=== PATIENT | female | born 1935 | race Caucasian/White ===

== ENCOUNTER 2018-08-16 07:03 | Inpatient (IN) | payer BC, OTHER ==
[2018-08-08 12:29] VITALS: BMI 33.7
[2018-08-16] MEDS ORDERED: VANCOMYCIN 1,000 MG VIAL (RESTRICTED TO ID ONLY) ONE (07:12)
[2018-08-16] MEDS ORDERED: ceFAZolin SODIUM 1 GM VIAL ONE ×2 (07:12→08:31)
[2018-08-16] MEDS ORDERED: GABAPENTIN 300 MG CAPSULE (FP) PO ONE (07:51)
[2018-08-16] MEDS ORDERED: TRANEXAMIC ACID 1000 MG/10 ML VIAL IVPUSH ONE (07:51)
[2018-08-16] MEDS ORDERED: CELECOXIB 200 MG CAPSULE PO ONE (07:51)
[2018-08-16] MEDS ORDERED: CEFAZOLIN 2 GM in DEXTROSE 5%-WATER - 50 ML IVPB ONE (07:51)
--- NOTE | 2018-08-16 07:57 | HP ---
Satellite [facility] - Chief Complaint Chief Complaint: right knee pain s/p ukr - Past Medical History Allergies/Adverse Reactions: Allergies Allergy/AdvReac Type Severity Reaction Status Date / Time No Known Allergies Allergy Verified 04/21/14 15:33 Cardiovascular: Yes: HTN, Hyperlipdemia. No: Aortic Insufficiency Gastrointestinal: Yes: Constipation. No: Ascites, GERD, GI Bleed Infectious Disease: Yes: Herpes Zoster Musculoskeletal: Yes: Bursitis (KNEE) - Current Medications Current Medications: Home Medications Medication Instructions Recorded Simvastatin [Zocor -] 20 mg PO HS 04/21/14 Alprazolam 0.25 mg PO BID PRN 07/19/14 Aspirin [Aspirin EC] 81 mg PO HS 07/19/14 Calcium Carbonate/Vitamin D3 1 each PO DAILY 07/19/14 [Calcium + Vitamin D Tablet] Cholecalciferol (Vitamin D3) 2,000 unit PO DAILY 07/19/14 [Vitamin D3] Docusate Sodium [Colace -] 100 mg PO TID 07/19/14 Ferrous Sulfate [Feosol] 325 mg PO DAILY 07/19/14 Temazepam [Restoril] 15 mg PO HS 07/19/14 Vitamin B Complex [B Complex] 1 each PO DAILY 07/19/14 Metoprolol Succinate [Toprol XL -] 12.5 mg PO DAILY 07/26/14 Satellite Physical Exam - Physical Examination General Appearance: Well Nourished, Well Developed, Alert & Oriented x3 ENT: Clear Lung: Normal air movement Heart: Regular rate & rhythm Extremities: Other (right knee- well healed surgical scar, + swelling, + ttp, decr rom, nvi xrays show medial ukr with grade 4 djd lateral and PF) Neurological: Intact, Alert, Oriented Satellite Impression/Plan - Impression/Plan Impression: right knee djd, s/p medial ukr Operative Procedure: right revision pelon tkr Date to be Performed: 08/16/18
[2018-08-16] MEDS ORDERED: MIDAZOLAM HCL 2 MG/2 ML SINGLE DOSE VIAL ONE (08:55)
[2018-08-16] MEDS ORDERED: BUPIVACAINE LIPOSOME/PF (EXPAREL) 266 MG/20 ML VIAL ONE (08:55)
[2018-08-16] MEDS ORDERED: ONDANSETRON 4 MG/2 ML VIAL IVPUSH PRN ×2 (10:08→11:22)
[2018-08-16] MEDS ORDERED: LACTATED RINGERS SOLUTION 1,000 ML IV SCH ×2 (10:15→11:30)
[2018-08-16] MEDS ORDERED: VANCOMYCIN 1,000 MG VIAL (RESTRICTED TO ID ONLY) IVPB ONE (10:55)
[2018-08-16] MEDS ORDERED: ALPRAZolam 0.25 MG TABLET PO PRN (11:21)
[2018-08-16] MEDS ORDERED: MAGNESIUM HYDROX 2400MG/30ML ORAL SUSPENSION 30 ML CUP PO PRN (11:22)
[2018-08-16] MEDS ORDERED: MAG HYDROX/AL HYDROX/SIMETH 30 ML UNIT-DOSE CUP PO PRN (11:22)
--- NOTE | 2018-08-16 11:24 | OP ---
Operative Note - Note: Operative Date: 08/16/18 ([facility]) Pre-Operative Diagnosis: right knee djd, s/p ukr Operation: right revision pelon tkr Post-Operative Diagnosis: Same as Pre-op Surgeon: Jesús Grimaldo Merchandise Stocker: Terrence Veras Anesthesiologist/FINISHING FRAME RUNNER: Carline Blanton Anesthesia: Spinal, Local Specimens Removed: bone fragments, ukr components Estimated Blood Loss (mls): 150 Operative Report Dictated: Yes
[2018-08-16] MEDS ORDERED: ACETAMINOPHEN 325 MG TABLET (FP) ONE (12:07)
[2018-08-16] MEDS: DOCUSATE SODIUM 100 MG CAPSULE (FP) PO SCH ×2 (14:10→21:14)
[2018-08-16] MEDS ORDERED: oxyCODONE HCL 5 MG TABLET ONE (14:30)
[2018-08-16] MEDS: oxyCODONE HCL 5 MG TABLET PO PRN ×3 (14:40→21:16)
[2018-08-16] MEDS: CEFAZOLIN 2 GM/D5W 2 GM/50 ML ML IVPB SCH (17:08)
[2018-08-16] MEDS: ACETAMINOPHEN 325 MG TABLET (FP) PO SCH ×2 (17:09→23:30)
--- NOTE | 2018-08-16 20:39 | OP ---
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 POSTOPERATIVE DIAGNOSIS: Degenerative joint disease, right knee status post previous medial partial knee replacement. PROCEDURE: Revision of previous unicompartmental knee replacement to a right total knee arthroscopy with robotic-assisted navigation. SURGEON: Jesús Grimaldo MD CANNONEER: JOSEPH Whitt ANESTHESIA: Regional and spinal. CLOSURES: Cemented Triathlon knee system with a 3 femur, 3 tibia, 13 polyethylene, 32 patella, No. 1 Vicryl to fascia, 0 and 2-0 to subcutaneous, 3-0 Monocryl to subcuticular with skin glue to skin, 4-0 undyed Vicryl for pin sites. ESTIMATED BLOOD LOSS: Less than 100 mL. TOURNIQUET TIME: Approximately 25 minutes. COMPLICATIONS: None. CONDITION: To recovery room in stable condition. DESCRIPTION OF PROCEDURE: The patient was taken to the operating room on August 16, 2018. Spinal and regional anesthesia was administered by the anesthesiologist. IV Kefzol was administered prophylactically prior to the case. Well-padded pneumatic tourniquet was placed on the right proximal thigh. The right lower extremity was prepped and draped in the usual sterile fashion. Utilizing the previously made incision, which was more medial, we made an incision using that incision propagating it more proximally and curving it towards the midline for approximately 12 cm. flaps were made medial and lateral to perform the procedure. Medial parapatellar arthrotomy was then made, and the patella was inverted, and the knee was flexed up. Check points were malleted in both the femur and the tibia. Meniscal remnant were removed as were the ACL and PCL. Subperiosteal dissection was done on the anteromedial proximal tibia. Two threaded parallel pins were drilled from the medial femoral condyle towards the posterior lateral femoral condyle. To these pins was fashioned the femoral navigation array. On the tibial side, the same was performed. Two small hand incisions one handbreadth below the tibial tubercle going through the anterior cortex engaging, but not going through, the far cortex. Again, the tibial navigation array was clamped to these pins. The knee was then registered with multiple points on the femur and the tibia with the navigation device. Excellent registration was then confirmed by "popping the bubbles". The knee was then stressed in both varus and valgus stress at full extension and 90 degrees of flexion. We used this data to optimize the virtual position of the components on the navigation device. After this was performed, small osteotomes were used to remove the femoral and tibial component. This was done with minimal, if any, bone loss. The robot was then brought into the field, and the femur and tibia were both cut as to plan. Excellent balancing was obtained in both full extension and full flexion with a 9-mm insert; however, looking at the tibial baseplate, there was significant cement still on the medial compartment. We then had the robot take off 4 more mm of proximal tibia, and we brought the saw back into the field and cut the tibia as to plan. We then ensured that there was identical soft tissue balancing in flexion and extension again using our 13-mm implant, which there clearly was. This got rid of all of the cement on the tibial baseplate. The trial components were placed on the femur. The tibial baseplate was allowed to "find itself". It was then clipped into place. The center of the component was confirmed additionally by using the navigation device to make sure essential external rotation of the tibial component was obtained. Again, the knee was taken through a full extension and full flexion with excellent tensioning throughout. The patella was calipered for thickness and was osteotomized down to the appropriate level. A 32 lollipop was used to drill lug holes in the patella, and a trial component was applied. The knee was taken through a range of motion and found to have excellent tracking of the patella throughout with no undue tension. The trial components were removed. A keyhole was then punched and drilled. The real components were then cemented in using modern generation cement techniques with antibiotic cement. This was done after the leg was exsanguinated with an Esmarch bandage and the tourniquet was inflated to 275 mmHg. The knee was thoroughly irrigated and dried and the modern cementation took place. The knee was pressurized in extension. All excess cement was removed. After the cement was hardened, the knee was thoroughly inspected to remove all excess cement. The real 13 polyethylene was then clipped into place. Range of motion, stability, and tracking was as described earlier. The knee was again thoroughly irrigated. It was dried of all excess fluid. Vancomycin powder was then placed into the joint. The medial parapatellar arthrotomy was then closed using No. 1 Vicryl interrupted suture. After this layer was closed, again, the knee was taken through a range of motion and found to have no undue tension on the retinacular repair and excellent tracking of the patella. The subcutaneous was then post antibiotic irrigated again and then closed in layers with 2-0 subcutaneous and 3-0 Monocryl subcuticular with skin glue for closure of the pins on the tibia, and the femur and the check points were all removed. A sterile Aquacel dressing was then applied followed by a Rodrigues dressing. The patient was awakened from anesthesia and transferred to the recovery room in stable condition with no complications. Estimated blood loss was less than 100 mL. JESÚS GRIMALDO M.D. [id number]
[2018-08-16] MEDS: oxyCODONE HCL 10 MG SUSTAINED ACTING TABLET PO SCH (21:14)
[2018-08-16] MEDS: ATORVASTATIN CA 10 MG TABLET (FP) PO SCH (21:14)
[2018-08-16] MEDS ORDERED: TEMAZEPAM 15 MG CAPSULE PO PRN (22:00)
[2018-08-16] MEDS ORDERED: PATIENT'S OWN MEDICATION (NON-FORMULARY) (Simvastatin 20 MG) PO SCH (22:00)
[2018-08-17] MEDS: CEFAZOLIN 2 GM/D5W 2 GM/50 ML ML IVPB SCH (02:59)
[2018-08-17] MEDS: oxyCODONE HCL 5 MG TABLET PO PRN ×3 (05:25→19:47)
[2018-08-17] MEDS: DOCUSATE SODIUM 100 MG CAPSULE (FP) PO SCH ×3 (05:26→21:42)
[2018-08-17] MEDS: ACETAMINOPHEN 325 MG TABLET (FP) PO SCH ×3 (05:26→17:04)
[2018-08-17] MEDS: ASPIRIN 325 MG TABLET PO SCH (08:04)
[2018-08-17 09:17] LABS: HEMATOCRIT 32.9 % (32.4-45.2); HEMOGLOBIN 11.1 GM/dl (10.7-15.3); MCH 28.5 pg (25.7-33.7); MCHC 33.8 g/dl (32.0-36.0); MEAN CELL VOLUME 84.4 fl (80-96); MEAN PLT VOLUME 8.1 fl (7.5-11.1); PLATELET COUNT 204 K/MM3 (134-434); RDW 12.4 % (11.6-15.6); WHITE BLOOD COUNT 8.3 K/mm3 (4.0-10.8)
[2018-08-17] MEDS: FERROUS SO4 325 MG TABLET (FP) PO SCH (09:29)
[2018-08-17] MEDS: metoPROLOL SUCCINATE 25 MG TAB.SR.24H (FP) PO SCH (09:29)
[2018-08-17] MEDS: oxyCODONE HCL 10 MG SUSTAINED ACTING TABLET PO SCH ×2 (09:29→21:23)
[2018-08-17] MEDS: PANTOPRAZOLE 40 MG TABLET (FP) PO SCH (09:29)
[2018-08-17] MEDS: MULTIVITAMINS (DAILY MVI) TABLET (FP) PO SCH (09:29)
[2018-08-17] MEDS ORDERED: PATIENT'S OWN MEDICATION (NON-FORMULARY) (Ferrous Sulfate [Feosol] 325 MG) PO SCH (10:00)
--- NOTE | 2018-08-17 10:21 | PN ---
Progress Note (short form) - Note Progress Note: Ortho Pt seen and examined s/p right revision TKR pod #1 Selected Entries 08/17/18 06:00 Temperature 99.0 F Pulse Rate 76 Respiratory 18 Rate Blood Pressure 138/56 L Laboratory Tests 08/17/18 08:15 WBC 8.3 Hgb 11.1 Hct 32.9 Plt Count 204 dressing c/d/i, calf soft, nt nvi a/p PT dvt ppx pain control d/c home tomorrow if stable
--- NOTE | 2018-08-17 11:48 | PN ---
Progress Note (short form) - Note Progress Note: ANESTHESIA POSTOP: 83 yo female POD #1 s/p Revision of R TKA Patient sitting in chair in PT. Alert. Talkative. Pain responsive to pain medications. No nausea. VSS, Afebrile Encouraged IS and participation in PT. No complications from anesthesia
[2018-08-17] MEDS: ATORVASTATIN CA 10 MG TABLET (FP) PO SCH (21:23)
[2018-08-18] MEDS: ACETAMINOPHEN 325 MG TABLET (FP) PO SCH ×2 (00:02→07:00)
[2018-08-18] MEDS: DOCUSATE SODIUM 100 MG CAPSULE (FP) PO SCH (07:03)
[2018-08-18] MEDS: ASPIRIN 325 MG TABLET PO SCH (07:49)
[2018-08-18 08:52] LABS: HEMATOCRIT 29.4 % (32.4-45.2); HEMOGLOBIN 10.4 GM/dl (10.7-15.3); MCH 29.6 pg (25.7-33.7); MCHC 35.5 g/dl (32.0-36.0); MEAN CELL VOLUME 83.4 fl (80-96); MEAN PLT VOLUME 8.6 fl (7.5-11.1); PLATELET COUNT 206 K/MM3 (134-434); RBC 3.52 M/mm3 (3.60-5.2); RDW 12.1 % (11.6-15.6); WHITE BLOOD COUNT 10.2 K/mm3 (4.0-10.8)
--- NOTE | 2018-08-18 08:52 | PN ---
Progress Note (short form) - Note Progress Note: Ortho Pt seen and examined s/p right revision TKR pod #2 Selected Entries 08/18/18 06:00 Temperature 100.3 F H Pulse Rate 93 H Respiratory 20 Rate Blood Pressure 130/49 L Laboratory Tests 08/18/18 07:55 WBC Pending Hgb Pending Hct Pending Plt Count Pending dressing c/d/i, calf soft, nt nvi a/p PT dvt ppx pain control d/c home today f/u in 1 week
--- NOTE | 2018-08-18 08:53 | DS ---
Physical Examination Vital Signs: Vital Signs Temperature 100.3 F H 08/18/18 06:00 Pulse Rate 93 H 08/18/18 06:00 Respiratory Rate 20 08/18/18 06:00 Blood Pressure 130/49 L 08/18/18 06:00 O2 Sat by Pulse Oximetry (%) 97 08/18/18 07:53 Discharge Summary Reason For Visit: OSTEOARTHRITIS Procedures: Principal: right revision tkr Hospital Course: admitted for elective right revision pelon TKR, uneventful post-op, stable for d/ c Condition: Good - Instructions Diet, Activity, Other Instructions: Post-op Instructions-Total Knee Replacement Call the office for a follow-up appointment in 1 week - [phone] Aspirin 325mg daily for 6 weeks. Pain medication was sent into your pharmacy. Apply Graduated Compression Stockings (TEDs) to both lower extremities- remove daily for hygiene ONLY Apply Sequential Compression Device (SCDs) to both Lower extremities remove for PT and hygiene ONLY Apply cold packs to affected area for 15 minutes every 2 hours. Physical Therapist will come to your home for the first 5 days. You will be set up with outpatient PT at your first post-operative visit. Patient may ambulate as tolerated-encourage self care (at least every 2-3 hours while awake) with walker or cane Maintain Aquacel (waterproof) dressing to operative wound (will be removed by surgeon at first office visit) Shower with Aquacel dressing in place-if Aquacel integrity compromised, remove and apply dry sterile dressing and notify Orthopedist. DO NOT SHOWER unless Orthopedists approves without Aquacel dressing CONTACT THE OFFICE FOR ANY CHANGE IN YOUR CONDITION (for example-fever greater than 102 degrees, excessive bleeding from operative site, purulent drainage, severe swelling or pain) GO TO THE EMERGENCY ROOM IF THERE IS A MEDICAL EMERGENCY Knee Precautions: * Keep a rolled towel under affected heel while in bed or chair (to keep knee in extension) * Keep affected leg elevated except during mealtimes * DO NOT PLACE PILLOW UNDER AFFECTED KNEE * If you have any questions, please do not hesitate to call the office - . Referrals: Jesús Grimaldo MD [Staff Physician] - Disposition: VNS/HOME HEALTH CARE - Home Medications Comprehensive Discharge Medication List: Ambulatory Orders Simvastatin [Zocor -] 20 mg PO HS 04/21/14 Alprazolam 0.25 mg PO BID PRN 07/19/14 Calcium Carbonate/Vitamin D3 [Calcium 600-Vit D3 200 Tablet] 1 each PO DAILY Cholecalciferol (Vitamin D3) [Vitamin D3] 2,000 unit PO DAILY 07/19/14 Docusate Sodium [Colace -] 100 mg PO TID 07/19/14 Ferrous Sulfate [Feosol] 325 mg PO DAILY 07/19/14 Temazepam [Restoril] 15 mg PO HS 07/19/14 Metoprolol Succinate [Toprol XL -] 12.5 mg PO DAILY 07/26/14 Aspirin [ASA -] 325 mg PO DAILY@0800 tablet 08/16/18 Oxycodone HCl/Acetaminophen [Percocet 5-325 mg Tablet -] 1 - 2 tab PO Q6H #50 tab MDD 8 08/16/18
[2018-08-18] MEDS: FERROUS SO4 325 MG TABLET (FP) PO SCH (10:09)
[2018-08-18] MEDS: PANTOPRAZOLE 40 MG TABLET (FP) PO SCH (10:09)
[2018-08-18] MEDS: oxyCODONE HCL 10 MG SUSTAINED ACTING TABLET PO SCH (10:09)
[2018-08-18] MEDS: MULTIVITAMINS (DAILY MVI) TABLET (FP) PO SCH (10:09)
[2018-08-18] MEDS: metoPROLOL SUCCINATE 25 MG TAB.SR.24H (FP) PO SCH (10:10)
[2018-08-18 11:04] VITALS: BP 110/60; PULSE 68; TEMP 97.6
--- NOTE | 2018-08-29 10:25 | PATH ---
Surgical Pathology Report Patient Name: ESTIVEN GARZA Med. Rec. #: [id number] /Age/Gender: 1935 (Age: 83) / F Account: [id number] Location: [facility] MED-SURG Taken: 08/17/2018 Received: 08/17/2018 Reported: 08/29/2018 Physicians: Jesús Grimaldo M.D. Specimen(s) Received A: RIGHT KNEE BONES B: RIGHT KNEE EXPLANTS Clinical History Osteoarthritis right knee Final Diagnosis A. KNEE BONES, RIGHT, TOTAL KNEE REPLACEMENT: DEGENERATIVE JOINT DISEASE. B. EXPLANTS, RIGHT KNEE: HARDWARE, DESCRIBED (GROSS EXAMINATION ONLY). Electronically Signed Beatriz Knight M.D. Gross Description A. Received in formalin labeled "right knee bones," is a 10.0 x 9.0 x 1.8 cm aggregate of irwin portions of bone and soft tissue, consistent with knee bones. The articular surfaces show areas of granularity and eburnation. The underlying trabecular bone is yellow and hard. Retail Shift Manager sections are submitted in one cassette, following decalcification. B. Received fresh labeled "right knee explant," are 3 portions of lafleur metallic and white plastic hardware ranging from 4.0-5.0 cm in greatest dimension. No soft tissue is present. No sections are submitted, gross only. 08/18/201808/18/2018
== END 2018-08-18 11:09 | disposition home health service (06) | DRG 468 ==
LOC: FM/S 07:03
PROVIDERS: ADMIT Orthopaedic Surgery; ATTEND Orthopaedic Surgery
PROC: 0SRC0L9 Replacement of Right Knee Joint with Medial Unicondylar Synthetic Substitute, Cemented, Open Approach (ICD-10-PCS; 2018-08-16)
PROC: 8E0Y0CZ Robotic Assisted Procedure of Lower Extremity, Open Approach (ICD-10-PCS; 2018-08-16)
PROC: 0SPC0LZ Removal of Medial Unicondylar Synthetic Substitute from Right Knee Joint, Open Approach (ICD-10-PCS; principal; 2018-08-16 09:30)
DX: M17.11 Unilateral primary osteoarthritis, right knee (principal); I10 Essential (primary) hypertension; E78.5 Hyperlipidemia, unspecified; K59.00 Constipation, unspecified; B02.9 Zoster without complications
CPT/HCPCS: 36415; 73560-TC-RT-FY; 85027; 88300-TC; 88304-TC; 88311-TC; 94760; 97116-GP; 97162-GP

== ENCOUNTER 2022-09-06 14:48 | Emergency (ER) | payer BC ==
[2022-09-06 14:52] VITALS: BP 149/56; PULSE 64; RESP 18; TEMP 97.5; BMI 38.1
== END 2022-09-06 17:21 | disposition home or self-care (01) ==
LOC: JER 14:48
DX: S09.90XA Unspecified injury of head, initial encounter (principal); W19.XXXA Unspecified fall, initial encounter; Y92.9 Unspecified place or not applicable
CPT/HCPCS: 70450-TC; 72125-TC; 99284-25

== ENCOUNTER 2023-09-22 08:40 | Day surgery (SDC) | payer SELFPAY ==
[2023-09-21 09:38] VITALS: BMI 38.7
[~2023-09-22 08:40] MED LIST: LIDOCAINE HCL 1%, 10 MG/ML (20ML VIAL) INF ONE
[2023-09-22] MEDS ORDERED: LIDOCAINE HCL 1%, 10 MG/ML (20ML VIAL) INF ONE (10:28)
[2023-09-22 11:58] VITALS: BP 168/72; PULSE 62; RESP 18; TEMP 97.9
== END 2023-09-22 11:15 | disposition home or self-care (01) ==
LOC: JASU-SURG 08:40
PROVIDERS: ATTEND Orthopaedic Surgery
PROC: 015D3ZZ Destruction of Femoral Nerve, Percutaneous Approach (ICD-10-PCS; principal; 2023-09-22 10:30)
DX: M17.12 Unilateral primary osteoarthritis, left knee (principal); I10 Essential (primary) hypertension